=== PATIENT | male | born 1990 | race Caucasian/White ===

== ENCOUNTER 2017-12-18 12:00 | Emergency (ER) | payer OTHER, SELFPAY ==
[2017-12-18 12:00] VITALS: BP 164/64; PULSE 88; RESP 18; TEMP 36.7; O2SAT 98; BMI 25.1
--- NOTE | 2017-12-18 12:44 | RAD_ITS ---
STUDY: X-RAY - LEFT SHOULDER REASON FOR EXAM: Male, 27 years old. Pain. Fall TECHNIQUE: 3 view(s) of the shoulder. COMPARISON: None. FINDINGS: Normal glenohumeral articulation. Normal acromioclavicular joint. Normal acromion. Normal humeral head and visualized proximal humerus. The soft tissue structures are unremarkable. There is no demonstrated fracture. Normal visualized pulmonary apex. RAD/Shoulder min 2 Views IMPRESSION: Normal x-ray examination of the shoulder. Electronically Signed: Everton Roman MD at 13:38 EST , Service support ,
--- NOTE | 2017-12-18 12:46 | ED.VIS.GEN ---
History of Present Illness Chief Complaint: Upper Extremity Injury Informant: Patient Onset: Today Context: Sudden Onset - slipped on ice and fell Timing: Continuous Quality: pain Location: left shoulder Current Severity: gone Maximum Severity: Severe Worsened by: moving LUE at first. now by raising overhead. Relieved by: getting arm down Narrative: Patient slipped on the ice and caught himself with his left upper extremity, causing acute pain and the feeling of a deformity in his shoulder. He states that his arm was up over his head and he was unable to get it down, arriving in the ER that way, but prior to my evaluation he states he crackling and popping in it and suddenly it was able to come down to where it is now, and he states his pain is gone but if he goes up over his head again, it gets stuck and hurts so he is avoiding it. He denies having any symptoms, pain or numbness now. He denies any other injury. He has never dislocated his shoulders before. Past Medical History - Allergies and Home Meds Allergies/Adverse Reactions: Allergies sulfamethoxazole [From Bactrim] Allergy (Verified 12/18/17 12:02) Hives trimethoprim [From Bactrim] Allergy (Verified 12/18/17 12:02) Hives Primary Care Physician: Handy Palacios MD [Primary Care Provider] - Past Medical History: None Smoking Status: Never smoker Review of Systems Musculoskeletal: Reports: Extremity Pain. Denies: Neck pain, Back pain Skin: Denies: Rash, Wounds Neurological: Denies: Headache, Weakness, Numbness Physical Exam Vital Signs/Narrative: Vital Signs Temp Pulse Resp BP Pulse Ox 12/18/17 12:00 98.1 F 88 18 164/64 H 98 Inital Vital Signs reviewed: Yes General: Well nourished, Well developed, - - Well-appearing, NAD Head: Normocephalic, Atraumatic Extremities: Nontender, No edema, - - No left shoulder deformity. No clavicle or AC joint tenderness. No proximal humeral tenderness. Good range of motion, but limited, when he abducts he starts to have pain. Able to internally and externally rotate without difficulty. Skin: Normal color, No rash Neurological: Alert, Oriented x3, Cranial nerves II-XII grossly intact, Normal Strength, Normal Sensation - Including left axillary nerve distribution Psychological: Normal affect Diagnostic/Tx/Re-eval Clinical Impression(s) from Imaging Studies Shoulder X-Ray 12/18/17 12:44 IMPRESSION: Normal x-ray examination of the shoulder. Electronically Signed: Everton Roman MD at 13:38 EST , Service support , - Medical Decision Making X-rays including axillary view of the left shoulder are normal. It is possible he had luxatio erect that self reduced, where he had some other soft tissue injury preventing him from moving his shoulder at the time. He also could have had an anterior dislocation that he self reduced. He did not require analgesics since he is in no pain as long as he is holding his left arm in the neutral position which he has been. Plan is to have him maintain his arm in a sling and follow-up with orthopedics after the weekend. He is comfortable with that plan. ED Disposition - Plan for ED Patient: Disposition: Home or Assisted Living Chief Complaint: Upper Extremity Injury Diagnosis: Dislocation of shoulder, left, closed Instructions: ED Dislocation Shoulder Redu Referrals: Greg Bunch MD [STAFF PHYSICIAN] - (call wednesday for appt) Additional Instructions: Ibuprofen or Aleve, along with placing an ice pack, if you have more shoulder pain. Avoid overhead movements.
[2017-12-18 14:17] VITALS: RESP 16
--- NOTE | 2017-12-18 14:17 | ED.RN ---
REVIEWED D/C INSTRUCTIONS, FOLLOW UP CARE, AND S/S THAT WOULD WARRANT A RETURN TO THE ED WITH PT. PT VERBALIZED AN UNDERSTANDING AND DENIES FURTHER QUESTIONS FOR THIS RN. PT SKIN P/W/D, RESP EVEN AND UNLABORED, PT A&O X 3, NO DISTRESS NOTED. PT AMBULATED OUT OF ED, GAIT STEADY.
== END 2017-12-18 14:20 | disposition home or self-care (01) ==
PROVIDERS: Emergency Provider Emergency Medicine
DX: S43.005A Unspecified dislocation of left shoulder joint, initial encounter (principal); W00.0XXA Fall on same level due to ice and snow, initial encounter; Y93.89 Activity, other specified
CPT/HCPCS: 73030; 99283

== ENCOUNTER 2024-06-10 12:05 | Emergency (ER) | payer OTHER, SELFPAY ==
[2024-06-10 12:06] VITALS: BP 144/82; PULSE 84; RESP 16; TEMP 35.6; O2SAT 100; BMI 26.4
--- NOTE | 2024-06-10 12:14 | EX.ED.UPPERE ---
HPI History of Present Illness HPI Narrative: Patient presents with left shoulder dislocation that occurred today. Patient states he was walking when he slipped and fell. Patient states he put his left arm out to catch his fall. Patient states he felt his shoulder pop out at that time. Patient states his pain is aching. Patient states it is worse with movement. Patient denies any paresthesias or weakness. Patient states he has dislocated his shoulder twice in the past. Patient denies any head injury or loss of consciousness. Patient denies any other injuries. Chief Complaint: Upper Extremity Injury Informant: patient Occured/Mechanism Mechanism/Context: Yes fall Onset/Context/Timing Onset: Today Context: Sudden Onset Timing: Continuous Quality of Pain: Aching Location: Left shoulder Worsened by: Movement Relieved by: Nothing Associated Symptoms Associated Symptoms: Negative for Parasthesia, Weakness or Loss of Funtion PFSH PFSH Medical History no medical history no medical history Home Medications ?Medication ?Instructions ?Recorded ?Last Taken ?Type No Known/Unobtainable [No Known 08/05/14 Unknown History Home Medications] Allergy/AdvReac Type Severity Reaction Status Date / Time sulfamethoxazole (From Allergy Hives Verified 12/18/17 12:02 Bactrim) trimethoprim (From Bactrim) Allergy Hives Verified 12/18/17 12:02 Family History no significant family his Surgical History no surgical history no surgical history Social History Smoking Status: Never smoker ROS ROS ED Constitutional Constitutional ED: Denies chills or fever(s) Eyes Eyes: Denies blurry vision or change in vision ENT ENT ED: Denies rhinorrhea or sore throat Cardiovascular Cardiovascular: Denies chest pain or palpitations Respiratory/Chest Respiratory/Chest: Denies cough or dyspnea Gastrointestinal Gastrointestinal: Denies nausea or vomiting Genitourinary Genitourinary ED: Denies dysuria or hematuria Musculoskeletal Musculoskeletal: Denies back pain or neck pain Integumentary Denies abscess or rash Neurologic Neurologic: Denies headache(s) or weakness Allergic/Immunologic Allergic/Immunologic ED: Denies mouth swelling or urticaria EXAM Physical Exam Const Vital Signs: 06/10/24 12:06 Temperature 96.1 F L Temperature Source Temporal Pulse Rate 84 Respiratory Rate 16 Blood Pressure 144/82 H Blood Pressure Mean 102 Pulse Ox 100 Oxygen Delivery Method Room Air Positive well nourished and well developed General Appearance ED: well developed and NAD HEENT Reports moist mucous membranes normocephalic and atraumatic Neck full ROM and supple Extremity Extremity Narrative: There is tenderness over the left shoulder. There is a sulcus sign noted. Range of motion was limited in all motions of the left shoulder secondary to pain. Sensation was intact to light touch in the radial, median, ulnar, and axillary areas. Strength is 5/5 in the radial, median, and ulnar areas. Radial pulses are equal bilaterally. Neuro oriented x3, CN's II-XII intact bilaterally, moves all extremities, no focal motor deficits and no sensory deficits noted Sensorium / Orientation: alert Motor Exam: strength 5/5 throughout Psych mental status grossly normal MDM MDM MDM Narrative Medical decision making narrative: Differential diagnosis includes dislocation, fracture, and contusion. X-rays of the left shoulder will be obtained to assess for fracture and dislocation. Radiography Diagnostic Testing: X-rays of the left shoulder were obtained. There are 2 views. On my independent interpretation, there is an anterior-inferior dislocation of the humerus in relation to the glenoid. There are no acute fractures noted. Radiologist also interpreted the x-rays and agrees. Repeat x-rays of the left shoulder were obtained. There are 2 views. On my independent interpretation, the previous dislocation has been reduced. There is no acute fracture noted. Radiologist also interpreted the x-rays and agrees. Treatment and Re-Evaluation Narrative: Patient was ordered and injection of morphine but he declined this. Patient was given a dose of Tylenol instead. Patient declined conscious sedation for reduction. Patient was laid supine on the bed. The left upper extremity was externally rotated. The left upper extremity was then abducted and extended above his head. Patient felt better after this. There was no sulcus sign after manipulation. Repeat x-ray will be obtained to assess for adequate reduction. Patient was placed in a sling and swath. Patient was instructed to use ice to the area. Patient was instructed to take Tylenol or ibuprofen as needed for pain. Patient was given referral for orthopedics. Patient was instructed to return if worse in any way. Patient understood and was agreeable with the plan. All questions were answered. Discharge Plan Triage Chief Complaint: Upper Extremity Injury ED Provider: Sarmad Ariza Dx/Rx/DC Orders Clinical Impression: Anterior dislocation of left shoulder, Fall Instructions: ED Dislocation: Shoulder (Reduced) Prescriptions: No Action No Known Home Medications Primary Care Provider: Chel Solano Referrals: Chel Solano MD [Primary Care Provider] - 5-7 Days Dorian Prince DO [Med Staff - Active Staff] - 5-7 Days Print Language: Mauritian Disposition Disposition: Home, Self Care
[2024-06-10] MEDS: Acetaminophen 500 MG Tablet 1000 MG PO (12:30)
--- NOTE | 2024-06-10 12:36 | RAD_ITS ---
PROCEDURE: SHOULDER MIN 2 VIEWS 06/10/2024 REASON FOR EXAM: INJURY/PAIN TECHNIQUE: 3 view(s) of the left shoulder FINDINGS: Bones: No acute fracture. Joints: Anterior dislocation of the glenohumeral joint. Soft tissues: Soft tissues are unremarkable. Other: RAD/Shoulder min 2 Views IMPRESSION: Anterior dislocation of the glenohumeral joint. Reading Location: [id number]
--- NOTE | 2024-06-10 12:53 | RAD_ITS ---
PROCEDURE: SHOULDER ONE VIEW 06/10/2024 REASON FOR EXAM: DISLOCATION TECHNIQUE: 3 view(s) of the left shoulder FINDINGS: Bones: No acute fracture Joints: Normal alignment of the acromioclavicular and glenohumeral joints. Soft tissues: Soft tissues are unremarkable. Other: RAD/Shoulder One View IMPRESSION: NEGATIVE SHOULDER SERIES interval reduction of the glenohumeral joint. Reading Location: [id number]
[2024-06-10 13:48] VITALS: BP 144/82; PULSE 84; RESP 16; TEMP 35.6; O2SAT 100
== END 2024-06-10 13:52 | disposition home or self-care (01) ==
PROVIDERS: Emergency Provider Emergency Medicine; PCP Family Medicine; Visit Provider Emergency Medicine
DX: S43.015A Anterior dislocation of left humerus, initial encounter (principal); W19.XXXA Unspecified fall, initial encounter
CPT/HCPCS: 73020; 73030; 99284; A4216